=== PATIENT | male | born 1950 | race Caucasian/White ===

== ENCOUNTER 2018-03-14 08:25 | Day surgery (SDC) | payer MEDICARE ==
[~2018-03-14] VITALS: Ht 180.3 cm; Wt 115.9 kg
[~2018-03-14 08:25] MED LIST: ALBU90OI; ALBU90OI6 INH; ASPI325 PO; BUDE6HFA INH; CHLO25B PO; CYCL10 PO; Doxazosin Mesyla2 MG PO; FISH OIL 1,2001 EAC3 PO; FISH1000; FLONASE ALLERG9.9 ML; FLUO20 PO; FLUSAL5005; Flonase 0.05% N16 GM; GABA300 PO; GLUCOSAMINE &1 EACH PO; HYDACE10B; HYDACE5 PO; HYDGUAL120 PO; MONT10T; Mirapex1 MG PO; Monodox100 MG PO; NAPR500 PO; NAPROXEN; PRED10 PO; PRED20 PO; RESTLESS LEG MED; Requip3 MG PO; TAMS.4ER PO; TRAM50 PO; TRIAOIA; VITAMIN D3 COM1 EACH
--- NOTE | 2018-03-14 10:35 | NUR ---
03/14/18 1035 Patricio Javier [address] M INJ AT [facility] AT 1035 BY ODILIA.
== END 2018-03-14 11:07 | disposition home or self-care (01) ==
LOC: ORSCSDS 08:25
PROVIDERS: Orthopaedic Surgery
PROC: 3E0R33Z Introduction of Anti-inflammatory into Spinal Canal, Percutaneous Approach (ICD-10-PCS; principal; 2018-03-14 10:15)
DX: M54.16 Radiculopathy, lumbar region (principal); M48.061 Spinal stenosis, lumbar region without neurogenic claudication; G47.30 Sleep apnea, unspecified; K21.9 Gastro-esophageal reflux disease without esophagitis; J45.909 Unspecified asthma, uncomplicated; I10 Essential (primary) hypertension; E66.01 Morbid (severe) obesity due to excess calories; Z68.35 Body mass index [BMI] 35.0-35.9, adult; Z79.899 Other long term (current) drug therapy
CPT/HCPCS: J1040

== ENCOUNTER 2021-05-11 09:26 | Day surgery (SDC) | payer MEDICARE ==
[~2021-05-11] VITALS: Ht 177.8 cm; Wt 124.5 kg
[~2021-05-11 09:26] MED LIST changes: +ACET500 PO; +ASPI81CH PO; +Coq-1030 MG PO; +DULERA 100 MCG/13 GM INH; +FINA5 PO; +FISH OIL PO; +OXYC5 PO
--- NOTE | 2021-05-11 12:21 | NUR ---
05/11/21 1221 Curt Nunes [address] USED DURING PROCEDURE BY DR SIN.
== END 2021-05-11 12:35 | disposition home or self-care (01) ==
LOC: ORSCSDS 09:26
PROVIDERS: Orthopaedic Surgery
PROC: 3E0R33Z Introduction of Anti-inflammatory into Spinal Canal, Percutaneous Approach (ICD-10-PCS; principal; 2021-05-11 11:15)
DX: M48.062 Spinal stenosis, lumbar region with neurogenic claudication (principal); M54.16 Radiculopathy, lumbar region; J45.909 Unspecified asthma, uncomplicated; K21.9 Gastro-esophageal reflux disease without esophagitis; I10 Essential (primary) hypertension; E78.5 Hyperlipidemia, unspecified; G47.33 Obstructive sleep apnea (adult) (pediatric); E66.9 Obesity, unspecified; Z68.39 Body mass index [BMI] 39.0-39.9, adult; Z79.82 Long term (current) use of aspirin; Z79.899 Other long term (current) drug therapy
CPT/HCPCS: J1040

== ENCOUNTER → 2022-09-15 | Outpatient (CLI) | payer MEDICARE ==
[~2022-09-15] MED LIST changes: +HYDR1TAB94 PO; +KETO10 PO
== END ==
LOC: LAB SHORT 18:23 → LAB 18:23
DX: R10.30 Lower abdominal pain, unspecified (principal); R31.9 Hematuria, unspecified
CPT/HCPCS: 87086

== ENCOUNTER → 2023-04-05 | Outpatient (CLI) | payer MEDICARE ==
[2023-04-05 15:46] LABS: BASOPHILS ABSOLUTE AUTO 0.05 K/mm3 (0.00-0.23); BASOPHILS PERCENT AUTO 1 % (0-2); EOSINOPHILS ABSOLUTE AUTO 0.44 K/mm3 (0.00-0.68); EOSINOPHILS PERCENT AUTO 7 % (0-6); Hemoglobin 15.8 g/dL (13.5-17.5); IMMATURE GRAN ABSOLUTE AUTO 0.01 K/mm3 (0.00-0.10); IMMATURE GRAN PERCENT AUTO 0 % (0-1); LYMPHOCYTES ABSOLUTE AUTO 1.56 K/mm3 (0.84-5.20); LYMPHOCYTES PERCENT AUTO 24 % (21-46); MONOCYTES ABSOLUTE AUTO 0.64 K/mm3 (0.16-1.47); MONOCYTES PERCENT AUTO 10 % (4-13); Mean Corpuscular HGB 29.4 pg (26.0-34.0); Mean Corpuscular HGB Conc 33.6 g/dL (31.5-36.5); Mean Corpuscular Volume 88 fL (80-100); Mean Platelet Volume 10.3 fL (9.1-12.4); NEUTROPHILS ABSOLUTE AUTO 3.94 K/mm3 (1.96-9.15); NEUTROPHILS PERCENT AUTO 59 % (41-73); Platelet Count 228 K/mm3 (150-400); RDW Coefficient Variation 13.9 % (11.7-14.2); RDW Standard Deviation 43.9 fL (35.1-46.3); Red Blood Cell Count 5.37 M/mm3 (4.30-5.90); White Blood Cell Count 6.64 K/mm3 (4.00-11.30)
[2023-04-05 15:49] LABS: Bun/Creatinine Ratio 21.5 (12.0-20.0); Calcium, Blood 8.7 mg/dL (8.5-10.1); Creatinine, Blood 0.93 mg/dL (0.60-1.20); Potassium, Blood 3.6 mmol/L (3.5-5.5)
== END ==
LOC: LAB 15:42 → LAB SHORT 15:42
PROVIDERS: Physician Assistant
DX: R31.9 Hematuria, unspecified (principal); R82.79 Other abnormal findings on microbiological examination of urine
CPT/HCPCS: 80048; 85025; 87086